=== PATIENT | female | born 1945 | race Two or more races ===

== ENCOUNTER 2024-08-03 14:00 | Outpatient (AMB) | payer MEDICARE, MEDICAID, SELFPAY ==
[2024-08-03 14:20] VITALS: BP 126/70; PULSE 88; RESP 18; TEMP 36.3; O2SAT 96; BMI 29.7
--- NOTE | 2024-08-03 14:20 | PD.ORTHCLVIS ---
Vital signs 08/03/24 14:20 Height 1.63 m Height Method Stated Weight 78.953 kg Weight Measurement Method Standing Scale BMI 29.7 BP 126/70 Blood Pressure Source Automatic Cuff Blood Pressure Location Left Upper Arm Position Sitting Respiration 18 Pulse 88 Pulse Source Monitor Temp 97.3 F Temp Source Temporal Artery Scan Pulse Oximetry (%) 96 Oxygen Delivery Method Room Air Med/Allergies Allergies & Medications Allergies acetaminophen [From [place]] Adverse Reaction (Intermediate, Verified 08/03/24 14:21) Hallucinating hydrocodone [From [place]] Adverse Reaction (Intermediate, Verified 08/03/24 14:21) Hallucinating oxycodone Adverse Reaction (Intermediate, Verified 08/03/24 14:21) Hallucinating tramadol Adverse Reaction (Severe, Uncoded 08/03/24 14:21) Hallucinating Medication Reconciliation Unobtainable 05/21/24 [History Confirmed 08/03/24] Exam Exam Patient is in no acute distress and is cooperative with the examination today. Patient has a normal mood and affect. Breathing is nonlabored. In no respiratory distress. Bilateral extremities were evaluated and demonstrates sensation intact to light touch. Palpable pedal pulses are present. No significant edema is present. Left knee incision is clean dry and intact. Range of motion 0 to 110 degrees. The knee feels stable varus valgus stress as well as AP translation Assessment and Plan Problem List (1) Status post total left knee replacement: Status: Acute Plan: Patient is a pleasant 79-year-old female. I have not seen her in quite a while. I have not seen her in approximately 1 year. We will continue with nonoperatie treatment and is happy with her left total knee replacement Advanced Care Planning Discussion Advance care planning discussed with:: patient and child Office Procedures GNS Level of Care Nursing/Assessment Patient Status: Established Patient Nursing Assessment/Reassesment: Medication Reconciliation, Update PMH in EMR and Vital Signs Coordination of Care: Complex Care and Chronic Disease 1-5, Consent,records obtained, informed consent, Education Simp Pt/Fam, Results/Orders obtained and Staff clarify orders Established Patient Charge Established Patient Point Assignment: 90 Established Patient Point Charge: EP Level 3 (80-115) MA Intake Visit Data Collection New Patient or Established: Established Patient (seen at [facility] within 3 years) Seen by Clinical Staff ONLY (RN/MA): No Tree Chipper Required: Yes Do You Feel Safe at Home: Yes Authorities Contacted: N/A Questionairres Past Medical History Past Medical History Have you ever been diagnosed with any of the following: Surgical History Total Knee Replacement: Yes Subjective Immunization / Flu Flu Vaccine in the Last 12 Months: No Flu Vaccine Exclusion Criteria: Refused by Patient History of Present Illness Chief complaint: left knee replacement Kassandra is a pleasant 79-year-old female with a left total knee replacement done approximately 14 months ago. She is doing well. She has no pain at all. She had a complicated hospital stay due to delirium Ambulatory data Ambulatory device: cane Review of Systems Review of Systems: All systems negative unless otherwise noted in HPI.
== END 2024-08-03 14:44 | disposition home or self-care (01) ==
LOC: HODSRG 14:00
PROVIDERS: PCP Specialist; Referring Provider Specialist; Supervising Provider Orthopaedic Surgery Adult Reconstructive Orthopaedic Surgery; Visit Provider Orthopaedic Surgery Adult Reconstructive Orthopaedic Surgery
DX: Z96.652 Presence of left artificial knee joint (principal)
CPT/HCPCS: 99213; G0463

== ENCOUNTER 2024-11-02 13:52 | Outpatient (AMB) | payer MEDICARE, MEDICAID, SELFPAY ==
[2024-11-02 14:05] VITALS: BP 149/73; PULSE 75; RESP 18; TEMP 36.4; O2SAT 95; BMI 29.4
--- NOTE | 2024-11-02 14:05 | ORTHONT_ITS ---
Vital signs 11/02/24 14:05 Height 1.63 m Height Method Stated Weight 78.188 kg Weight Measurement Method Standing Scale BMI 29.4 BP 149/73 H Blood Pressure Source Automatic Cuff Blood Pressure Location Right Upper Arm Position Sitting Respiration 18 Pulse 75 Pulse Source Monitor Temp 97.5 F Temp Source Temporal Artery Scan Pulse Oximetry (%) 95 Oxygen Delivery Method Room Air Med/Allergies Allergies & Medications Allergies acetaminophen (From [place]) Adverse Reaction (Intermediate, Verified 11/02/24 14:06) Hallucinating hydrocodone (From [place]) Adverse Reaction (Intermediate, Verified 11/02/24 14:06) Hallucinating oxycodone Adverse Reaction (Intermediate, Verified 11/02/24 14:06) Hallucinating tramadol Adverse Reaction (Severe, Uncoded 11/02/24 14:06) Hallucinating Medication Reconciliation Unobtainable 05/21/24 [History Confirmed 11/02/24] Exam Exam Patient is in no acute distress and is cooperative with the examination today. Patient has a normal mood and affect. Breathing is nonlabored. In no respiratory distress. Bilateral extremities were evaluated and demonstrates sensation intact to light touch. Palpable pedal pulses are present. No significant edema is present. Left knee incision is clean dry and intact. Range of motion 0 to 110 degrees. The knee feels stable varus valgus stress as well as AP translation X-rays were reviewed and demonstrate a cemented total knee replacement in good alignment and position Assessment and Plan Problem List (1) Status post total left knee replacement: Status: Acute Plan: Patient is a pleasant 79-year-old female. I have not seen her in quite a while. We will continue with nonoperative treatment For the right knee. Advanced Care Planning Discussion Advance care planning discussed with:: patient Office Procedures GNS Level of Care Nursing/Assessment Patient Status: Established Patient Nursing Assessment/Reassesment: Medication Reconciliation, Update PMH in EMR and Vital Signs Coordination of Care: Complex Care and Chronic Disease 1-5, Education Complex Pt/Fam, Consent,records obtained, informed consent, Results/Orders obtained and Staff clarify orders Special Needs: Language special needs Established Patient Charge Established Patient Point Assignment: 95 Established Patient Point Charge: EP Level 3 (80-115) IN Intake Visit Data Collection New Patient or Established: Established Patient (seen at [facility] within 3 years) Reason for Visit:: F/U LEFT TKA Seen by Clinical Staff ONLY (RN/MA): No Verbal consent obtained for Telemed visit?: No Recycling Assistant Required: Yes PCP or OBGYN visit in last 3 months: Yes Hx Now: No Do You Feel Safe at Home: Yes Authorities Contacted: N/A Questionairres Past Medical History Past Medical History Have you ever been diagnosed with any of the following: Surgical History Total Knee Replacement: Yes Subjective Visit Visit for: follow up visit and knee Immunization / Flu Flu Vaccine in the Last 12 Months: Yes Flu Vaccine Exclusion Criteria: Already Received History of Present Illness Chief complaint: F/U LEFT TKA Kassandra is a pleasant 79-year-old female with a left total knee replacement done approximately 18 months ago. She is doing well. She has no pain at all. She had a complicated hospital stay due to delirium Personal History Occupation: RETIRED Red flag PMH: BMI and other (specify) (PACEM[employer]ER) BMI Counceling provided: Yes Pain Pain level (0-10): 0 Associated signs & symptoms: none Ambulatory data Ambulatory device: cane Treatments Improvement with previous injections: No Improvement with PT: No Improvement with NSAIDS: no Review of Systems Review of Systems: All systems negative unless otherwise noted in HPI.
== END 2024-11-02 14:21 | disposition home or self-care (01) ==
LOC: HODSRG 13:52
PROVIDERS: PCP Specialist; Referring Provider Specialist; Supervising Provider Orthopaedic Surgery Adult Reconstructive Orthopaedic Surgery; Visit Provider Orthopaedic Surgery Adult Reconstructive Orthopaedic Surgery
DX: Z96.652 Presence of left artificial knee joint (principal)
CPT/HCPCS: 99213; G0463